=== PATIENT | male | born 1970 | race Caucasian/White ===

== ENCOUNTER → 2020-08-19 | Day surgery (SDC) | payer OTHER ==
[~2020-08-19] MED LIST: ALLEGRA ALLERG180 MG PO; CLARITIN10 MG PO; COQ1050 MG PO; KEFLEX250 MG PO; LISINOPRIL-HCT1 EAC1 PO; NORCO 5-325 TA1 EACH PO; VITAMIN E; ZOCOR40 MG PO
[2020-08-19 09:29] LABS: HGB 15.7 g/dl (13.2-18.0); MCH 30.4 pg (25.0-31.0); MCHC 34.1 g/dL (32.0-36.0); RBC 5.17 M/uL (4.70-6.00); RDW 12.5 % (11.5-14.0); WBC 6.5 K/uL (4.0-10.5)
[2020-08-19 09:46] LABS: ALBUMIN 4.1 g/dL (3.4-5.0); BILIRUBIN - TOTAL 0.5 mg/dL (0.2-1.0); BUN/CREAT RATIO (CALC) 21.4 RATIO; CREATININE 0.84 mg/dL (0.67-1.17); GLOBULIN (CALCULATION) 3.6 g/dL; POTASSIUM 3.9 mmol/L (3.5-5.1); TOTAL PROTEIN 7.7 g/dL (6.4-8.2)
== END | disposition home or self-care (01) ==
LOC: FAS 08:01
PROVIDERS: Surgery
DX: D17.22 Benign lipomatous neoplasm of skin and subcutaneous tissue of left arm (principal); D17.0 Benign lipomatous neoplasm of skin and subcutaneous tissue of head, face and neck; I10 Essential (primary) hypertension; G47.30 Sleep apnea, unspecified; E78.5 Hyperlipidemia, unspecified; F10.10 Alcohol abuse, uncomplicated; Z79.899 Other long term (current) drug therapy; Z20.822 Contact with and (suspected) exposure to COVID-19; Z88.8 Allergy status to other drugs, medicaments and biological substances; Z80.3 Family history of malignant neoplasm of breast; Z82.3 Family history of stroke; Z82.49 Family history of ischemic heart disease and other diseases of the circulatory system
CPT/HCPCS: 36415; 80053; J1100; J2250; J2405; J2704; J2710; J3010; J7120

== ENCOUNTER 2020-08-27 17:29 | Emergency (ER) | payer OTHER ==
[~2020-08-27 17:29] MED LIST changes: -KEFLEX250 MG PO
[2020-08-27] MEDS ORDERED: KEFLEX250 MG PO (18:47)
== END 2020-08-27 19:05 | disposition home or self-care (01) ==
LOC: FER 17:29
DX: T81.31XA Disruption of external operation (surgical) wound, not elsewhere classified, initial encounter (principal); I10 Essential (primary) hypertension; Y83.6 Removal of other organ (partial) (total) as the cause of abnormal reaction of the patient, or of later complication, without mention of misadventure at the time of the procedure